=== PATIENT | female | born 1975 | race Caucasian/White ===

== ENCOUNTER 2016-09-18 09:52 | Day surgery (SDC) | payer OTHER ==
[~2016-09-18 09:52] MED LIST: DEXAMETHASONE 10 MG/ML VIAL IVP ONE; OXYMETAZOLINE 30 ML NASAL SPRAY EACHNARE SCH; ceFAZolin 2 GM/DEXTROSE 100 ML IV ONE
[2016-09-18] MEDS ORDERED: OXYMETAZOLINE 30 ML NASAL SPRAY ONE (10:34)
[2016-09-18] MEDS ORDERED: CEFAZOLIN 2 GM/DEXTROSE/100 ML BAG IV ONE (10:43)
[2016-09-18] MEDS ORDERED: DEXAMETHASONE 10 MG/ML VIAL ONE (10:43)
[2016-09-18] MEDS ORDERED: LIDO/EPI 1% **Not for Epidural 20 ML MDV ONE (10:50)
[2016-09-18] MEDS ORDERED: DEXAMETHASONE 4 MG/ML VIAL ONE ×3 (10:51→12:13)
[2016-09-18] MEDS ORDERED: LR 1,000 ML IV ONE (10:52)
[2016-09-18] MEDS ORDERED: WATER FOR INJ.,BACTERIOSTATIC 30 ML MDV ONE (10:52)
[2016-09-18] MEDS ORDERED: MIDAZOLAM 2 MG/2 ML VIAL ONE (11:35)
[2016-09-18] MEDS ORDERED: LIDOCAINE 2% 5 ML SDV ONE (11:48)
[2016-09-18] MEDS ORDERED: ROCURONIUM 50 MG/5 ML VIAL ONE (11:48)
[2016-09-18] MEDS ORDERED: fentaNYL 100 MCG/2 ML INJ ONE ×3 (11:49→14:50)
[2016-09-18] MEDS ORDERED: PROPOFOL 200 MG/20 ML VIAL ONE (11:49)
[2016-09-18] MEDS ORDERED: EPINEPHrine 30 MG/30 ML MDV ONE (13:09)
[2016-09-18] MEDS ORDERED: FLUORESCEIN SODIUM 1 MG STRIP OP ONE (13:12)
[2016-09-18] MEDS ORDERED: SUGAMMADEX SODIUM 200 MG/2 ML VIAL IVP ONE (14:04)
[2016-09-18] MEDS ORDERED: OXYCODONE/APAP 5/325 TAB ONE (15:07)
--- NOTE | 2016-09-18 23:07 | GOP ---
[f rep st] OPERATIVE REPORT DATE OF OPERATION: 09/18/2016 SURGEON: Marilee Montoya MD PREOPERATIVE DIAGNOSIS: 1. Chronic maxillary sinusitis. 2. Chronic ethmoid sinusitis. 3. Chronic sphenoid sinus. 4. Headaches. 5. Deviated nasal septum. 6. Turbinate hypertrophy. POSTOPERATIVE DIAGNOSIS: 1. Chronic maxillary sinusitis. 2. Chronic ethmoid sinusitis. 3. Chronic sphenoid sinus. 4. Headaches. 5. Deviated nasal septum. 6. Turbinate hypertrophy. PROCEDURE PERFORMED: 1. Endoscopic septoplasty. 2. Right maxillary antrostomy without tissue removal. 3. Left maxillary antrostomy with tissue removal. 4. Bilateral anterior ethmoidectomy. 5. Bilateral sphenoidotomy. 6. Bilateral anterior turbinate reduction, submucosal resection. 7. Three-dimensional navigation. FINDINGS: INDICATIONS: The patient is a 41-year-old female with CT scan demonstrating chronic sinusitis, including sphenoid sinusitis, as well as a headache that had persisted for greater than 6 months despite medical therapy. She failed to improve radiographically through oral medications and her headache also persisted. She did seek a Neurology consultation who did not feel strongly that the sinuses were contributing to her headache; however, she was highly motivated to treat any possible cause of her headaches, given they had been ongoing so long and refractory to any therapies. Risks, benefits and alternatives of the above procedures were discussed and they decided to proceed forward. DESCRIPTION OF PROCEDURE: The patient was met in preoperative holding and informed consent was confirmed. The patient was brought to the operating room. She underwent induction of general anesthesia with placement of an endotracheal placed without difficulty. She was rotated 90 degrees to the operating surgeon and positioned, prepped and draped in the standard fashion. A 0-degree rigid endoscope was used to examine each nasal passageway. The deviated nasal septum was noted and I opted to perform a septoplasty as it was both contributing potential a part of the facial pain and headaches, as well as some difficulty accessing the left sphenoid sinus. Local anesthetic was infiltrated throughout the septum and submucoperichondrial flaps were elevated through a Michael incision on the right. The bony deviated nasal septum was excised while preserving a greater than 1 cm dorsal and cobble strut with a combination of the Rudolph swivel knife as well as the Brenton forceps. Next, additional lidocaine with epinephrine was infiltrated throughout each region of the turbinate uncinate process. The right middle turbinate was medialized and the uncinate process was removed using backbiting forceps as well as the microdebrider. There was an accessory ostia that was noted and this was connected using the backbiting forceps and then a large maxillary antrostomy was created using the microdebrider as well as Gelacio-Cut forceps in the posterior fontanelle. Anterior ethmoidectomy was then performed starting at the hiatus semilunaris superiorris and then moving superior, working my way medially-inferiorly to superolaterally to the level of the basal lamella. This was repeated in the same fashion on the left side. Again, the middle turbinate was medialized and the uncinate process was removed using the backbiting forceps , as well as the microdebrider superiorly and inferiorly. Again, another accessory ostia was noted. This was connected using the backbiting forceps as well and a significant amount of purulence was expressed from this side using the suction. A large maxillary antrostomy was then performed using a microdebrider as well as Gelacio-Cut forceps in the posterior fontanelle. Anterior ethmoidectomy was then performed starting at the hiatus semilunaris superioris and working my way medially, inferiorly to superolaterally. Next, using the navigation system which had been previously registered and confirmed to be accurate, I then lateralized the middle turbinates bilaterally to examine for the natural os of the sphenoid sinus. This was somewhat bony and hard on the right side, but I did eventually find it was opened using the mushroom punch. There was no purulence in this side. On the left side again, this os was somewhat softer and easier to open. However, there was a significant amount of purulent return, somewhat under pressure even, that was suctioned free entirely. This os was widened more generously using the mushroom punch and the sphenoid sinus was confirmed to be clear at the conclusion. Next, bilateral inferior turbinate reduction surgery was then performed, starting with stab incisions in each inferior turbinate using the 2 mm microdebrider performing a submucous resection, first of the right and then of the left inferior turbinate. Each inferior turbinate was then closed from the outfracture as well. The turbinates were then re-medialized. The middle meatus and ethmoid cavities were suctioned free of any excess blood and Stammberger Sinu-Foam was placed bilaterally as hemostatic stents. At the end of this procedure, all sponge, needle and instrument counts were correct. I personally performed all portions of this case. /[id number]/MODL MTDD
== END 2016-09-18 17:00 | disposition home or self-care (01) ==
LOC: FSGY 09:52
PROVIDERS: ATTEND Otolaryngology
PROC: 09CX4ZZ Extirpation of Matter from Left Sphenoid Sinus, Percutaneous Endoscopic Approach (ICD-10-PCS; principal; 2016-09-18 11:44)
PROC: 09BL8ZZ Excision of Nasal Turbinate, Via Natural or Artificial Opening Endoscopic (ICD-10-PCS; principal; 2016-09-18 11:44)
PROC: 09BR4ZZ Excision of Left Maxillary Sinus, Percutaneous Endoscopic Approach (ICD-10-PCS; principal; 2016-09-18 11:44)
PROC: 09CW4ZZ Extirpation of Matter from Right Sphenoid Sinus, Percutaneous Endoscopic Approach (ICD-10-PCS; principal; 2016-09-18 11:44)
PROC: 09BU4ZZ Excision of Right Ethmoid Sinus, Percutaneous Endoscopic Approach (ICD-10-PCS; principal; 2016-09-18 11:44)
PROC: 09BV4ZZ Excision of Left Ethmoid Sinus, Percutaneous Endoscopic Approach (ICD-10-PCS; principal; 2016-09-18 11:44)
DX: J34.2 Deviated nasal septum (principal); J32.0 Chronic maxillary sinusitis; J32.2 Chronic ethmoidal sinusitis; J32.3 Chronic sphenoidal sinusitis; R51 Headache; J33.8 Other polyp of sinus
CPT/HCPCS: J0690; J1100; J2250; J2704; J3010